=== PATIENT | female | born 1995 | race African-American/Black ===

== ENCOUNTER 2019-05-18 16:05 | Emergency (ER) | payer SELFPAY ==
[2019-05-18 16:07] VITALS: BP 142/86; PULSE 87; RESP 18; TEMP 36.6; O2SAT 97
--- NOTE | 2019-05-18 16:24 | ED.BACK ---
HPI - Back Pain/Injury General Chief Complaint: Back Pain/Injury Stated Complaint: back pain Time Seen by Provider: 05/18/19 16:21 Source: patient Mode of arrival: ambulatory Limitations: no limitations History of Present Illness HPI Narrative: Patient presents with chief complaint of pain to her shoulders. Patient reports pain increases her range of motion. 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 Patient denies any direct trauma to her neck or back. Patient denies any chest pain or shortness of breath. Patient is not taking any medications to alleviate her symptoms. Patient denies any chance of due to condom usage. Related Data Allergies Allergy/AdvReac Type Severity Reaction Status Date / Time No Known Allergies Allergy Unverified 02/17/19 15:49 Review of Systems Review of Systems: Narrative: CONSTITUTIONAL: Denies fever, chills, or sweats. EYES: Denies visual changes, redness, or discharge. ENT: Denies rhinorrhea, congestion, sore throat, or otalgia. CARDIOVASCULAR: Denies chest pain, palpitations, or edema. RESPIRATORY: Denies cough or dyspnea. GASTROINTESTINAL: Denies abdominal pain, nausea, vomiting, or diarrhea. GENITOURINARY: Denies dysuria or hematuria. SKIN: Denies rash or itching. MUSCULOSKELETAL: Reports muscular pain denies back pain, joint pain NEUROLOGIC: Denies headache, numbness, dizziness, or weakness. PSYCHIATRIC: Denies anxiety or depression. [facility] Social History Social History Smoking status: Never smoker Alcohol intake: never Substance use: unknown Substance use type: marijuana Gender identity (if verbalized by the patient): Female Exam Narrative: Exam Narrative: GENERAL: Well-appearing, well-nourished, and in no acute distress. HEAD: Normocephalic, atraumatic. EYES: PERRLA and EOMI. ENT: Nares clear, no rhinorrhea or epistaxis. Mucous membranes moist. Oropharynx without tonsillar hypertrophy exudate or other lesions. Bilateral TMs pearly martel nonbulging NECK: Supple. No adenopathy or masses. No carotid bruits or JVD. Pain elicited with palpation of trapezial muscle. CHEST: Patient's breasts are pendulous and hanging. Clear to auscultation. No respiratory distress. No wheezes rales or rhonchi HEART: Regular rate and rhythm. No murmur heard. Normal peripheral pulses. EXTREMITIES: Normal range of motion. No edema. SKIN: Warm, dry, no rash. NEURO: No focal deficits. Alert and oriented x3. PSYCH: Normal mood and affect. Course Vital Signs Vital signs: Vital Signs Temperature 97.8 F 05/18/19 16:07 Pulse Rate 87 05/18/19 16:07 Respiratory Rate 18 05/18/19 16:07 Blood Pressure 142/86 H 05/18/19 16:07 Pulse Oximetry 97 05/18/19 16:07 Temperature 97.8 F 05/18/19 16:07 Pulse Rate 87 05/18/19 16:07 Respiratory Rate 18 05/18/19 16:07 Blood Pressure 142/86 H 05/18/19 16:07 Pulse Oximetry 97 05/18/19 16:07 MDM - Back Pain/Injury MDM Narrative Medical decision making narrative: Patient pain is elicited with palpation of the trapezial muscles. Patient's breasts are extremely long and pendulous. 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 Patient instructed to follow-up with primary care for reevaluation and further management of musculoskeletal discomfort. Patient asked if she needs to be tested for as NSAIDs and muscle relaxants are contraindicated in . Patient declines and states that she understands the risk and takes liability. Patient denies any other questions or concerns. Differential Diagnosis Differential diagnosis: Likely other (Chest pain, muscle spasm, cervical or thoracic injury) Discharge Plan Discharge Clinical Impression: Trapezius muscle strain Qualifiers: Encounter type: initial e
[2019-05-18 16:47] VITALS: BP 118/75; PULSE 78; RESP 16; O2SAT 100
== END 2019-05-18 16:48 | disposition home or self-care (01) ==
PROVIDERS: Emergency Provider Family Medicine
DX: S46.812A Strain of other muscles, fascia and tendons at shoulder and upper arm level, left arm, initial encounter (principal); X58.XXXA Exposure to other specified factors, initial encounter
CPT/HCPCS: 99283